=== PATIENT | male | born 1960 | race Caucasian/White ===

== ENCOUNTER → 2023-11-07 | Outpatient (CLI) | payer OTHER ==
--- NOTE | 2023-11-07 12:18 | XR ---
EXAMINATION TYPE: XR skull limited DATE OF EXAM: 11/07/2023 COMPARISON: None HISTORY: Retained metallic fragments, postsurgical TECHNIQUE: Skull is examined in 2 views. FINDINGS: There appear to be vascular clips within the intracalvarial region right and left parietal regions. Surgical sutures also noted. Second suture is more posterior lateral projection. IMPRESSION: 1. MRI CONTRAINDICATED. Vascular clips appear to be in the soft tissues inside the calvarium.
== END | disposition home or self-care (01) ==
LOC: RADXRMAIN 11:15
PROVIDERS: ATTEND Orthopaedic Surgery Orthopaedic Surgery of the Spine
DX: Z18.10 Retained metal fragments, unspecified (principal); Z98.890 Other specified postprocedural states
CPT/HCPCS: 70250

== ENCOUNTER 2023-11-27 07:52 | Day surgery (SDC) | payer OTHER ==
[2023-11-27] MEDS: diazePAM 5 MG TAB PO STA (08:42)
[2023-11-27 08:48] VITALS: RESP 16; TEMP 98
--- NOTE | 2023-11-27 12:10 | FL ---
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 FINDINGS: Informed consent was obtained including discussion of the risks and benefits. Timeout was taken per p rotocol. Real-time fluoroscopy was performed to localize the lumbar spine access site. The patient wa s prepped and draped. Under sterile technique with local anesthesia a 22-gauge spinal needle was intr oduced into the arachnoid space with return of clear CSF. A total of 10 cc of Isovue-300 M was inject ed with appropriate opacification of the thecal sac. Total fluoroscopy time was 3 minutes 53 seconds Total fluoroscopic images 0. Radiographs taken: 7 DAP: Not Reported by machine [id number] IMPRESSION: Successful lumbar puncture with injection for CT myelogram. CT pending.
[2023-11-27 14:17] VITALS: BP 137/76; PULSE 76
--- NOTE | 2023-11-30 10:09 | CT ---
EXAMINATION TYPE: CT lumbar spine w con CT DLP: 510.77 mGycm, Automated exposure control for dose reduction was used. DATE OF EXAM: 11/27/2023 10:57 AM COMPARISON: Plain film 11/07/2023 CLINICAL INDICATION:Male, 63 years old with history of M51.36 DDD Lumbar spine; [facility], lumbar myelogram , DDD lspine TECHNIQUE: Multiple axial images were obtained from the midportion of T11 through the sacroiliac shanice nts. Soft tissue and bone windows in coronal and sagittal planes were obtained and reviewed. Contrast used:15 mL of Isovue 300 with IV Contrast, (None, if empty). Oral contrast used: (None, if empty). FINDINGS: Alignment: There are 5 lumbar type vertebral bodies within normal alignment. Bone: Multilevel degeneration with joint space narrowing osteophyte formation and facet joint arthro maddie. Pseudoarthrosis of the L3-L4 spinous processes. Cord: Nodular thickening of the cauda equina extending from L3 to L5. Discs: T12-L1: No spinal canal or neural foraminal stenosis is identified. L1-L2: No spinal canal or neural foraminal stenosis is identified. L2-L3: No spinal canal or neural foraminal stenosis is identified. L3-L4: No spinal canal or neural foraminal stenosis is identified. L4-L5: No spinal canal or neural foraminal stenosis is identified. L5-S1: Facet joint arthropathy and disc bulging result with mild spinal canal stenosis and moderate r ight and mild left neural foraminal stenosis. Other: Right renal cyst. Moderate atherosclerosis of the arterial vasculature. Infrarenal abdominal a ortic dilation up to 32 mm. Calcified granulomas within the liver. IMPRESSION: 1. No evidence for spinal fracture. 2. Areas of thickening suggested of the cauda equina possibly secondary to arachnoiditis. Consider CT evaluation of the brain for exact localization of metallic clips and then if clips are within the zarco bcutaneous tissues consider MRI with IV contrast for further evaluation. 3. [id number] degeneration changes of the spine with no foraminal stenosis worse at L5-S1 on th e right with at least moderate neural foraminal stenosis. 4. 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
== END 2023-11-27 14:22 | disposition home or self-care (01) ==
LOC: RADPROMAIN 07:52
PROVIDERS: ATTEND Orthopaedic Surgery Orthopaedic Surgery of the Spine
DX: M51.36 Other intervertebral disc degeneration, lumbar region (principal)
CPT/HCPCS: 62304; 72132; J2001; Q9967